=== PATIENT | female | born 1945 | race Caucasian/White ===

== ENCOUNTER 2017-09-01 11:28 | Emergency (ER) | payer MEDICARE ==
--- NOTE | 2017-09-01 11:48 | Emergency Department Record ---
History of Present Illness - General Chief Complaint: Chest Pain Stated Complaint: CHEST PAIN Time Seen by Provider: 09/01/17 11:37 Source: Patient Mode of Arrival: EMS Limitations: No limitations - History of Present Illness Initial Comments: The patient is here due to a 4 day hx of intermittent CP. She describes it as a retrosternal tightness that comes on with exertion and intermittently radiates to her L arm and jaw. She states exertion sometimes brings it on and it does seem to relieve with rest. Today she shovelled snow and the pain worsened for a time and she happened to be at her PCP's office for a doctor visit for her and complained of the pain. There she received a single NTG and 324 mg of ASA and her pain resolved. Presently she is pain free and states her only cardiac risk factor is DMII. MD Complaint: Chest pain Onset/Timin -: Days(s) Pain Location: Substernal Pain Radiation: LUE, Jaw/teeth Treatments Prior to Arrival: Aspirin, Nitroglycerin - Related Data Home Medications Medication Instructions Recorded Confirmed Last Taken Alprazolam [Xanax Xr] 0.5 mg PO BID 09/01/17 09/01/17 09/01/17 Atenolol 25 mg PO DAILY 09/01/17 09/01/17 09/01/17 Diphenoxylate HCl/Atropine 1 each PO QHS PRN 09/01/17 09/01/17 Unknown [Lomotil 2.5-0.025 mg Tablet] Naproxen 375 mg PO BID 09/01/17 09/01/17 09/01/17 Oxybutynin Chloride [Ditropan Xl] 10 mg PO DAILY 09/01/17 09/01/17 09/01/17 Pramipexole Di-HCl [Mirapex] 0.25 mg PO BID 09/01/17 09/01/17 08/31/17 Ranitidine HCl [Zantac] 150 mg PO ASDIR 09/01/17 09/01/17 Unknown Simvastatin [Zocor] 10 mg PO QHS 09/01/17 09/01/17 08/31/17 Tramadol HCl [Ultram] 50 mg PO ASDIR PRN 09/01/17 Unknown Zolpidem Tartrate [Ambien] 10 mg PO QHS 09/01/17 09/01/17 Unknown Allergies Allergy/AdvReac Type Severity Reaction Status Date / Time ciprofloxacin Allergy CHILLS Verified 09/01/17 11:48 Travel Screening - Travel/Exposure Within Last 30 Days Have you traveled within the last 30 days?: No - Travel/Exposure Within Last Year Have you traveled outside the [place] in the last year?: No - Additonal Travel Details Have you been exposed to anyone with a communicable illness?: No - Travel Symptoms Symptom Screening: None Review of Systems Constitutional: Denies: Chills, Fever Eyes: Denies: Eye discharge ENT: Denies: Congestion Respiratory: Denies: Cough Cardiovascular: Reports: Chest pain, Dyspnea on exertion. Denies: Arrhythmia Endocrine: Denies: Fatigue Gastrointestinal: Denies: Abdominal pain Genitourinary: Denies: Dysuria Musculoskeletal: Denies: Arthralgia Past Medical History - SOCIAL HISTORY Smoking Status: Never smoker Alcohol Use: None Drug Use: None - RESPIRATORY Hx Respiratory Disorders: Yes Hx Dyspnea: Yes - CARDIOVASCULAR Hx Cardio Disorders: No - NEURO Hx Neuro Disorders: No - GI Hx GI Disorders: No - Hx Genitourinary Disorders: Yes Hx Bladder Problem: Yes (overactive) - ENDOCRINE Hx Endocrine Disorders: Yes Hx Diabetes: Yes Hx Thyroid Disease: No - MUSCULOSKELETAL Hx Musculoskeletal Disorders: Yes Hx Arthritis: Yes Hx Osteoporosis: Yes - PSYCH Hx Psych Problems: Yes Hx Anxiety: Yes - HEMATOLOGY/ONCOLOGY Hx Hematology/Oncology Disorders: Yes Hx Cancer: Yes (skin cancer on nose) Family Medical History Any Significant Family History?: No Physical Exam - General General Appearance: Alert, Oriented x3, Cooperative, No acute distress - Head Head exam: Atraumatic, Normocephalic - Eye Eye exam: Normal appearance, PERRL - ENT Throat exam: Normal inspection. negative: Tonsillar erythema, Tonsillar exudate - Neck Neck exam: Normal inspection, Full ROM. negative: Tenderness - Respiratory Respiratory exam: Normal lung sounds bilaterally. negative: Respiratory distress - Cardiovascular Cardiovascular Exam: Regular rate, Normal rhythm, Normal heart sounds. negative : Diastolic murmur, Systolic murmur - GI/Abdominal GI/Abdominal exam: Soft, Normal bowel sounds. negative: Tenderness - Extremities Extremities exam: Normal inspection, Full ROM, Normal capillary refill. negative: Tenderness - Neurological Neurological exam: Alert. negative: Motor sensory deficit - Skin Skin exam: negative: Rash Course Vital Signs 09/01/17 11:29 Temperature 97.9 F Pulse Rate 53 L Respiratory 16 Rate Blood Pressure 179/86 Pulse Ox 100 - Reevaluation(s) Reevaluation #1: The patient is doing very well at this time denies any pain or discomfort. I did discuss the plan with the patient and the need for a Cardiology Consult. The patient and family would like to go to [facility] so I did discuss the case with Dr. Ball and he did accept the patient to [facility]. 09/01/17 12:33 Medical Decision Making - Data Complexity MDM Data: Labs Ordered and/or Reviewed, X-Ray Ordered and/or Reviewed, EKG Ordered and/or Reviewed - Lab Data Result diagrams: 09/01/17 11:15 09/01/17 11:15 - EKG Data -: EKG Interpreted by Me EKG: No Acute Changes (LAFB with possible LVH.) - Radiology Data Radiology results: Report reviewed (CXR: Neg.) Disposition Disposition: Transfer Clinical Impression: Chest pain at rest Disposition: Acute Care Hospital Transfer Transfer To: [facility] Reason For Transfer: Cardiology Accepting Physician: Alondra Time Discussed w/Accepting Physician: 12:34 Condition: (2) Stable Forms: Patient Portal Access Time of Disposition: 12:34 Quality - Quality Measures Quality Measures: N/A - Blood Pressure Screening View Details: Yes Does Patient Have Any of the Following: No Blood Pressure Classification: Hypertensive Reading Systolic Measurement: 176 Diastolic Measurement: 78 Screening for High Blood Pressure: < Pre-Hypertensive BP, F/U Documented > [ [id number]] Pre-Hypertensive Follow-up Interventions: Referral to alternative/primary care provider.
[2017-09-01 11:52] LABS: BASO % 0.2 % (0-6); EOS % 2.9 % (0-6); GRAN % 54.7 % (47-80); HEMOGLOBIN 13.2 gm/dl (11.6-16.0); LYMPH % 33.1 % (16-45); MEAN CELL VOLUME 94.6 fl (81-97); MEAN CORPUSCULAR HEMOGLOBIN 31.2 pg (27-33); MEAN PLATELET VOLUME 10.1 fl (7.4-10.4); MONO % 9.1 % (0-9); PLATELET COUNT 192 K/uL (130-400); RED BLOOD COUNT 4.23 M/uL (3.80-5.40); RED CELL DISTRIBUTION WIDTH 12.8 % (11.5-14.5); WHITE BLOOD COUNT W/O DIFF 6.6 K/uL (4.2-12.2)
[2017-09-01 12:01] LABS: BLOOD UREA NITROGEN 24 mg/dL (8-23); CREATININE 0.9 mg/dL (0.5-0.9); EST GLOMERULAR FILTRATION RATE > 60 mL/min
[2017-09-01 12:04] LABS: GLUCOSE,RANDOM 129 mg/dL (74-109)
[2017-09-01 12:06] LABS: INR 0.98; PARTIAL THROMBOPLASTIN TIME 24.3 SECONDS (24.5-39.1); PROTHROMBIN TIME (PATIENT) 10.6 SECONDS (9.5-12.1)
[2017-09-01 12:07] LABS: CREATINE PHOSPHOKINASE 46 U/L (26-192)
[2017-09-01 12:09] LABS: CKMB 1.2 ng/mL (<3.77)
--- NOTE | 2017-09-02 07:46 | RADIOLOGY REPORT ---
EXAM: AP CHEST HISTORY: ACUTE ANGINA. TECHNIQUE: An AP view of the chest was obtained. Comparison: Chest x-ray 11/29/16. FINDINGS: The lungs are clear. The cardiac silhouette, diaphragm, and osseous structures are unremarkable for age. IMPRESSION: NEGATIVE AP CHEST EXAMINATION. JOB NUMBER: [id number] MTDD
== END 2017-09-01 13:22 | disposition short-term general hospital (02) ==
LOC: ER 11:28
DX: R07.89 Other chest pain (principal); M79.602 Pain in left arm; E11.9 Type 2 diabetes mellitus without complications
CPT/HCPCS: 71010; 80048; 82550; 82553; 84484; 85025; 85610; 85730; 93005; 93010; 99285

== ENCOUNTER 2017-09-26 09:26 | Day surgery (SDC) | payer MEDICARE ==
[2017-09-26] MEDS ORDERED: PROPOFOL 10 MG/ML VIAL IV ONE (09:27)
[2017-09-26] MEDS ORDERED: FENTANYL PF 100MCG/2ML VIAL IV ONE (09:27)
[2017-09-26] MEDS ORDERED: LIDOCAINE 2% MDV (20MG/ML) 20ML VIAL IV ONE (09:27)
--- NOTE | 2017-09-27 12:40 | Operative Note ---
Dictated by Dr. Jaya King for Dr. Hahn DATE OF SURGERY: 09/26/2017 PREOPERATIVE DIAGNOSIS: Epigastric abdominal pain, heartburn, dysphagia. POSTOPERATIVE DIAGNOSES: 1. Normal esophagus. 2. Irregular GE junction, status post biopsy. 3. Mild antral gastritis, status post biopsy. 4. Normal duodenum. OPERATION: ESOPHAGOGASTRODUODENOSCOPY with biopsy. ENDOSCOPIST: Ronald Hahn DO MORTGAGE CLOSER: Dr. Jaya King ANESTHESIA: Anesthesia as performed by the anesthesia department. COMPLICATIONS: None. INDICATIONS FOR PROCEDURE: A 72-year-old female presents with epigastric abdominal pain and history of heartburn. The patient is currently taking Nexium once a day as well as Zantac p.r.n. The patient complains of some intermittent dysphagia with solids as well as liquids. PROCEDURE: Procedure was thoroughly explained to the patient including risks, benefits, and alternatives. The patient had opportunity to have questions answered. Patient agreed to procedure and signed written informed consent. The patient was brought to the endoscopy suite and was placed in the left lateral decubitus position. Bite block was placed and anth was begun. Procedure begun with introduction of a well-lubricated Olympus [id number] gastroscope to posterior oropharynx and was advanced into the esophagus under direct visualization. The esophagus appeared normal. GE junction showed mild irregularity with a short segment of pink mucosa that was noted. This was biopsied to rule out Gill's esophagus. Scope was advanced into the stomach where there appeared to be antral gastritis which was biopsied to rule out H pylori. The scope was advanced through the pylorus into the duodenal bulb, through the sweep into the second and third portions of the duodenum, which appeared normal. The scope was placed back into the antrum, was retroflexed through body of cardia and fundus, which appeared normal. Scope was placed back into the neutral position. Air was suctioned out and scope was withdrawn completely. Patient tolerated the procedure well without any immediate complications. RECOMMENDATION: 1. Continue current antireflux medications. 2. Will obtain barium esophagram to rule out esophageal spasm or other causes. 3. Repeat EGD as needed. As always, thank you for allowing me to participate in the care of your patient. CC: Dr. Marsha TAI
== END 2017-09-26 11:00 | disposition home or self-care (01) ==
LOC: HOP 09:26
PROVIDERS: ATTEND Internal Medicine Gastroenterology
DX: K29.50 Unspecified chronic gastritis without bleeding (principal); K31.89 Other diseases of stomach and duodenum; E78.00 Pure hypercholesterolemia, unspecified; I10 Essential (primary) hypertension; E11.9 Type 2 diabetes mellitus without complications; K21.0 Gastro-esophageal reflux disease with esophagitis
CPT/HCPCS: 43239; 00731; 88305; 88313; J3010

== ENCOUNTER 2019-04-27 12:54 | Day surgery (SDC) | payer MEDICARE ==
[~2019-04-27 12:54] MED LIST: ACETAMINOPHEN 1,000 MG/100 ML BTL IVPB ONE; CEFAZOLIN 2 Gram 2 GM/50 ML BAG IVPB ONE
[2019-04-27] MEDS ORDERED: LIDOCAINE 2% MDV (20MG/ML) 20ML VIAL IV ONE (12:55)
[2019-04-27] MEDS ORDERED: PROPOFOL 10 MG/ML VIAL IV ONE (12:55)
[2019-04-27] MEDS ORDERED: KETAMINE HCL 100MG/1ML VIAL INJ ONE (12:55)
[2019-04-27] MEDS ORDERED: 0.9 % SODIUM CHLORIDE 1000ML 1,000 ML IV ONE (13:25)
[2019-04-27] MEDS ORDERED: LIDOCAINE 1% W/EPI 1:200,000 MPF 30ML SQ ONE ×2 (14:32)
== END 2019-04-27 16:10 | disposition home or self-care (01) ==
LOC: SUR 12:54
PROVIDERS: ATTEND Urology
DX: N39.41 Urge incontinence (principal); T85.9XXA Unspecified complication of internal prosthetic device, implant and graft, initial encounter; I10 Essential (primary) hypertension; E78.00 Pure hypercholesterolemia, unspecified; R06.02 Shortness of breath; G25.81 Restless legs syndrome; N32.81 Overactive bladder; E11.9 Type 2 diabetes mellitus without complications; K21.9 Gastro-esophageal reflux disease without esophagitis; Z98.61 Coronary angioplasty status; Z96.9 Presence of functional implant, unspecified
CPT/HCPCS: 36416; 82948; 93005; J3490; J7030